=== PATIENT | male | born 2000 | race Hispanic/Latino ===

== ENCOUNTER 2022-06-09 12:19 | Emergency (ER) | payer MEDICAID ==
[~2022-06-09] VITALS: Ht 177.8 cm; Wt 79.4 kg
== END 2022-06-09 12:52 | disposition home or self-care (01) ==
LOC: ED 12:19
DX: S61.210A Laceration without foreign body of right index finger without damage to nail, initial encounter (principal); W26.8XXA Contact with other sharp object(s), not elsewhere classified, initial encounter
CPT/HCPCS: 12001; 99282-25